=== PATIENT | female | born 1940 | race African-American/Black ===

== ENCOUNTER → 2016-11-04 | Outpatient (CLI) | payer MEDICARE ==
[~2016-11-04] MED LIST: ALBUTEROL17 GM INH; ASPIRIN PO; ATORVASTATIN CA10 MG PO; B/P MED PO; BENADRILINA25 MG PO; CHOLESTEROL PO; CLONIDINE PO; COLCRYS0.6 MG PO; CORAL CALCIUM PO; EPIPEN0.3 MG/0.1 IM; FLEXERIL10 MG PO; HCTZ PO; IBUPROFEN PO; INDOCIN25 MG/5 ML PO; LISINOPRIL-HCTZ1 T19 PO; MEDROL DOSEPAK4 MG DOB; MULTI VITAMIN1 EACH PO; NORVASC PO; ORUDIS75 M1 DOB; PREDNISONE10 MG PO; TOPROL XL PO; VASOTEC PO; ZANTAC150 MG PO; ZESTORETIC 10-1 EAC1 PO
--- NOTE | ~2016-11-04 | CT57 ---
[facility] A Service of [facility] RADIOLOGY TEXT RESULTS PATIENT: BARNEY LOVELL LOCATION: [facility] : 41 UNIT #: [id number] AGE: [address]: Ben Tam MD SEX: F ORDER DR: [id number] [id number] [facility]. [place], [place] [address] [id number] O MR#: [id number] Acc #: [id number] NAME: BARNEY LOVELL. : 1940 SEX: F STUDY DATE/TIME: 11/04/2016 10:13 UNIT: [facility]AT ROOM: STUDY DESCRIPTION: CT Chest Wo Cont Attending Physician: Ben Tam M.D. Ordering Physician: Ben Tam M.D. Primary Care Physician: Britany Bhardwaj M.D. MEDICAL IMAGING REPORT This report is preliminary unless electronic signature is present EXAM CT chest without contrast INDICATIONS Follow up right upper lobe pulmonary nodule. PROCEDURE Unenhanced CT of the chest COMPARISON 08/04/[address] exam was performed with one or more of the following radiation dose reduction techniques: automatic exposure control, adjustment of mA and/or kV according to patient size, and iterative reconstruction. FINDINGS Redemonstration of scarring in the right upper lobe. An area of nodularity along the medial aspect of the scar in the right upper lobe measures 1.4 cm and is stable to minimally decreased from the prior. A 5 mm nodule right upper lobe is stable. No new nodules. No adenopathy. No acute findings in the included upper abdomen. Stable left nodule. No aggressive appearing bone lesion. IMPRESSION 1. Stable scarring in the right upper lobe with a somewhat nodular region along the medial extent which is unchanged and is favored to be benign. 2. Stable 5 mm nodule in the right upper lobe. No new nodules. [facility] A Service [facility] RADIOLOGY TEXT RESULTS PATIENT: BARNEY LOVELL LOCATION: [facility] : 41 UNIT #: [id number] AGE: [address]: Ben Tam MD SEX: F ORDER DR: Dictated by... Meir Weber M.D. THIS IS AN ELECTRONICALLY VERIFIED REPORT Meir Weber M.D. at 11/05/2016 2:17 PM ANA CRISTINA/dylan TD: 11/04/2016 12:30 JOB #: [id number] MEDICAL IMAGING REPORT Page 1 of 1 COPY
== END | disposition home or self-care (01) ==
LOC: CCAT 09:10
DX: R91.1 Solitary pulmonary nodule (principal); J98.4 Other disorders of lung
CPT/HCPCS: 71250

== ENCOUNTER → 2016-11-12 | Outpatient (CLI) | payer MEDICARE ==
--- NOTE | ~2016-11-12 | MY11 ---
[facility] A Service of [facility] RADIOLOGY TEXT RESULTS PATIENT: BARNEY LOVELL LOCATION: [facility] : 41 UNIT #: [id number] AGE: [address]: Britany Bhardwaj MD SEX: F ORDER DR: [id number] [facility] [address] [place], [place] [address] [id number] O MR#: [id number] Acc #: [id number] NAME: BARNEY LOVELL. : 1940 SEX: F STUDY DATE/TIME: 11/12/2016 10:51 UNIT: [facility] ROOM: STUDY DESCRIPTION: MY Mammogram Screening Dig Pavel Attending Physician: Britany Bhardwaj M.D. Ordering Physician: Britany Bhardwaj M.D. Primary Care Physician: Britany Bhardwaj M.D. MEDICAL IMAGING REPORT This report is preliminary unless electronic signature is present EXAM Bilateral digital screening mammogram with CAD 11/12/2016 INDICATION 76-year-old female for routine screening. No reported problems. No personal history of breast cancer. Family history positive in the patient's daughter at 54. Personal history of lung cancer. No prior breast surgeries. TECHNIQUE CC and MLO views of the breasts were obtained and reviewed with an FDA-approved CAD device. COMPARISON 10/07/2014, 10/03/2013, 08/10/2011. FINDINGS Breast parenchyma is composed of scattered fibroglandular densities. The pattern is unchanged. There is no new dominant nodule, mass or suspicious cluster of microcalcifications. Benign calcifications are present including secretory calcifications in the left breast and to a lesser extent the right. Prominent axillary node on the left stable dating back to 2011 for technical factors. IMPRESSION Benign screening mammogram. 1 year followup recommended. Patients over the age of 40 are entered into a reminder system with target due date for the next mammogram. A result letter will also be sent to the patient. BIRADS: 2 Benign finding [facility] A Service [facility] RADIOLOGY TEXT RESULTS PATIENT: BARNEY LOVLEL LOCATION: [facility] : 41 UNIT #: [id number] AGE: [address]: Britany Bhardwaj MD SEX: F ORDER DR: Dictated by... Prince Gupta M.D. THIS IS AN ELECTRONICALLY VERIFIED REPORT Prince Gupta M.D. at 11/12/2016 5:20 PM NORBERTO/daniel TD: 11/12/2016 12:47 JOB #: [id number] MEDICAL IMAGING REPORT Page 1 of 1 COPY
--- NOTE | ~2016-11-12 | BD1 ---
[facility] A Service of [facility] RADIOLOGY TEXT RESULTS PATIENT: BARNEY LOVELL LOCATION: [facility] : 41 UNIT #: [id number] AGE: [address]: Britany Bhardwaj MD SEX: F ORDER DR: [id number] [facility] [address] [place], [place] [address] [id number] O MR#: [id number] Acc #: [id number] NAME: BARNEY LOVELL : 1940 SEX: F STUDY DATE/TIME: 11/12/2016 10:51 UNIT: [facility] ROOM: STUDY DESCRIPTION: BD Dexa Bone Dens 1+ Site Attending Physician: Britany Bhardwaj M.D. Ordering Physician: Britany Bhardwaj M.D. Primary Care Physician: Britany Bhardwaj M.D. MEDICAL IMAGING REPORT This report is preliminary unless electronic signature is present EXAM DXA scan, 11/12/2016 HISTORY Status post menopause with no hormone replacement therapy. Osteopenia. Rheumatoid arthritis. Hypertension with blood pressure medication. Smoking history. FINDINGS Bone mineral density in the lumbar spine from L1-L4 is 0.979 g/cm2 which is 0.6 standard deviations below the mean when compared to the young adult reference population which is within the range of normal. This is 1.1 standard deviations above the mean when compared to the age-matched population. Compared with 10/03/2013, there has been a decrease in bone mineral density in the lumbar spine of 5.3%. Bone mineral density in the left femoral neck was 0.808 g/cm2 which is 0.4 standard deviations below the mean when compared to the young adult reference population which is within the range of normal. This is 0.6 standard deviations above the mean when compared to the age-matched population. Compared with 10/03/2013, there has been a decrease in bone mineral density in the left hip of 2.7%. IMPRESSION Bone mineral density in the lumbar spine and left hip within the range of normal. Compared with 10/03/2013, there has been a decrease in bone mineral density in the lumbar spine and the left hip. Dictated by... Wilton Hutchison M.D. THIS IS AN ELECTRONICALLY VERIFIED REPORT [facility] A Service of [facility] RADIOLOGY TEXT RESULTS PATIENT: BARNEY LOVELL LOCATION: [facility] : 41 UNIT #: [id number] AGE: [address]: Britany Bhardwaj MD SEX: F ORDER DR: Wilton Hutchison M.D. at 11/12/2016 5:11 PM KRT/corona TD: 11/12/2016 13:05 JOB #: [id number] MEDICAL IMAGING REPORT Page 1 of 1 COPY
== END | disposition home or self-care (01) ==
LOC: CWCC 10:23
DX: Z12.31 Encounter for screening mammogram for malignant neoplasm of breast (principal); Z80.3 Family history of malignant neoplasm of breast; Z78.0 Asymptomatic menopausal state; M85.80 Other specified disorders of bone density and structure, unspecified site; Z85.118 Personal history of other malignant neoplasm of bronchus and lung
CPT/HCPCS: 77080; G0202

== ENCOUNTER 2017-01-06 05:05 | Emergency (ER) | payer MEDICARE ==
[~2017-01-06 05:05] MED LIST changes: -CORAL CALCIUM PO; -IBUPROFEN PO; -ZESTORETIC 10-1 EAC1 PO
[2017-01-06] MEDS ORDERED: ZESTORETIC 10-1 EAC1 PO (05:13)
[2017-01-06] MEDS ORDERED: IBUPROFEN PO (05:13)
[2017-01-06] MEDS ORDERED: CORAL CALCIUM PO (05:14)
== END 2017-01-06 07:48 | disposition home or self-care (01) ==
LOC: CED 05:05
DX: L29.8 Other pruritus (principal); I10 Essential (primary) hypertension; F17.200 Nicotine dependence, unspecified, uncomplicated; M10.9 Gout, unspecified; Z90.89 Acquired absence of other organs; Z79.899 Other long term (current) drug therapy; Z88.0 Allergy status to penicillin; Z88.8 Allergy status to other drugs, medicaments and biological substances
CPT/HCPCS: 99283

== ENCOUNTER → 2017-03-23 | Outpatient (CLI) | payer MEDICARE ==
[~2017-03-23] MED LIST changes: +CORAL CALCIUM PO; +IBUPROFEN PO; +ZESTORETIC 10-1 EAC1 PO
--- NOTE | ~2017-03-23 | US77 ---
[facility] A Service of [facility] RADIOLOGY TEXT RESULTS PATIENT: BARNEY LOVELL LOCATION: [facility] : 41 UNIT #: [id number] AGE: [address]: Serjio Huerta MD SEX: F ORDER DR: [id number] [facility] [address] [place], [place] [address] [id number] O MR#: [id number] Acc #: [id number] NAME: BARNEY LOVELL : 1940 SEX: F STUDY DATE/TIME: 03/23/2017 9:49 UNIT: [facility] ROOM: STUDY DESCRIPTION: US Kidney Bilateral Complete Attending Physician: Sabine Huerta M.D. Referring Physician: Sabine Huerta M.D. Ordering Physician: Sabine Huerta M.D. Primary Care Physician: Britany Bhardwaj M.D. MEDICAL IMAGING REPORT This report is preliminary unless electronic signature is present EXAM Renal ultrasound, 03/23/2017 HISTORY Acute renal failure, abnormal renal function test. Elevated BUN of 20, elevated creatinine of 1.4. Abnormally low GFR of 47.1 today. Hypertension for 30 years. FINDINGS The right kidney measures 9 cm while the left kidney measures 9.3 cm in longitudinal dimensions. There is no evidence of hydronephrosis or nephrolithiasis. There is a 3.9 cm cyst on the left kidney. No solid mass lesions are identified. There is normal renal cortical echogenicity. Images of the bladder are normal. IMPRESSION 1. Left renal cyst, otherwise negative renal ultrasound. 2. Images of the bladder are normal. Dictated by... Wilton Hutchison M.D. THIS IS AN ELECTRONICALLY VERIFIED REPORT Wilton Hutchison M.D. at 03/25/2017 7:45 AM ADIS/cesar TD: 03/24/2017 00:23 JOB #: [id number] MEDICAL IMAGING REPORT [facility] A Service of [facility] RADIOLOGY TEXT RESULTS PATIENT: BARNEY LOVELL LOCATION: IV : 41 UNIT #: [id number] AGE: [address]: Serjio Huerta MD SEX: F ORDER DR: Page 1 of 1 COPY
--- NOTE | ~2017-03-23 | US78 ---
[facility] A Service of [facility] RADIOLOGY TEXT RESULTS PATIENT: BARNEY LOVELL LOCATION: [facility] : 41 UNIT #: [id number] AGE: [address]: Serjio Huerta MD SEX: F ORDER DR: [id number] [place] [id number] [facility]. [place], [place] [address] [id number] O MR#: [id number] Acc #: [id number] NAME: BARNEY LOVELL : 1940 SEX: F STUDY DATE/TIME: 03/23/2017 9:57 UNIT: [facility] ROOM: STUDY DESCRIPTION: US Kidney Duplex Complete Attending Physician: Sabine Huerta M.D. Referring Physician: Sabine Huerta M.D. Ordering Physician: Sabine Huerta M.D. Primary Care Physician: Britany Bhardwaj M.D. MEDICAL IMAGING REPORT This report is preliminary unless electronic signature is present EXAM Renal Doppler INDICATIONS Acute renal failure. The patient has had a history of hypertension for 30 years. TECHNIQUE Marrufo-scale, color Doppler and spectral Doppler waveform analysis was performed through the patient's kidneys. FINDINGS Marrufo-scale images are unremarkable with no hydronephrosis seen. Velocities within the renal artery on the right are within normal limits measuring 99 cm/sec proximally 78 cm/sec in the midportion and 56 cm/sec distally. The velocity within the left renal artery proximally measures 135 cm/sec, within the left renal artery midportion measures 98 cm/sec and distally measures 65 cm/sec. Patient's renal artery to aortic ratio is 1.5 on the right and 2.0 on the left. Resistive indices within the right kidney range from 0.60-0.85 and on the left measure 0.57 to 0.76. The patient's aorta measures within normal size limits but does demonstrates some atherosclerotic plaque. IMPRESSION No convincing evidence of hemodynamically significant renal artery stenosis. Dictated by... Na Lopez M.D. THIS IS AN ELECTRONICALLY VERIFIED REPORT [facility] A Service of [facility] RADIOLOGY TEXT RESULTS PATIENT: BARNEY LOVELL LOCATION: [facility] : 41 UNIT #: [id number] AGE: [address]: Serjio Huerta MD SEX: F ORDER DR: Na Lopez M.D. at 03/24/2017 2:45 PM AFF/bhavana TD: 03/24/2017 08:05 JOB #: [id number] MEDICAL IMAGING REPORT Page 1 of 1 COPY
== END | disposition home or self-care (01) ==
LOC: CNIV 09:00 → CGUS 12:45
DX: N17.9 Acute kidney failure, unspecified (principal); I10 Essential (primary) hypertension; N28.1 Cyst of kidney, acquired
CPT/HCPCS: 76770; 93975